=== PATIENT | female | born 1940 | race Caucasian/White ===

== ENCOUNTER 2020-02-12 15:54 | Inpatient (IN) | payer MEDICARE, OTHER ==
[~2020-02-12] VITALS: Ht 162.6 cm; Wt 56.9 kg
[2020-02-12] MEDS ORDERED: SODIUM CHLORIDE 0.9% 250 ML IV ONE (17:00)
[2020-02-12 18:03] LABS: Basophils # (auto) 0.2 10 ^3/uL (0-0.2); Eosinophils # (auto) 0.2 10 ^3/uL (0-0.8); Hemoglobin 9.5 g/dL (12.2-16.2); Lymphocytes # (auto) 2.5 10 ^3/uL (0.4-5.4); Monocytes # (auto) 0.9 10 ^3/uL (0-1.3); Monocytes % (auto) 9.5 % (0.0-12.0)
[2020-02-12 18:05] LABS: Basophils % (auto) 2.4 % (0.0-2.0); Eosinophils % (auto) 2.2 % (0.0-7.0); Hematocrit 29.3 % (36.0-46.0); Mean Corpuscular Hemoglobin 27.6 pg (28.0-32.0); Mean Corpuscular Hgb Conc. 32.4 g/dL (32.0-36.0); Mean Corpuscular Volume 85.2 fL (80.0-100.0); Neutrophils # (auto) 5.7 10 ^3/uL (1.6-8.6); Neutrophils % (auto) 59.9 % (37.0-80.0); Platelet Count (auto) 326 10^3/uL (140-450); Red Blood Cells 3.44 10^6/uL (4.0-5.20); Red Cell Distribution Width 15.4 % (11.8-14.3); White Blood Cell 9.4 10^3/uL (4.4-10.8)
[2020-02-12 18:18] LABS: INR 1.4 (0.9-1.15); Partial Thromboplastin Time 38.8 sec (23.0-31.2)
[2020-02-12 18:22] LABS: Albumin 1.7 g/dL (3.4-5.0); Anion Gap 6 (5-15); BUN/Creatinine Ratio 10.7; Blood Urea Nitrogen 37 mg/dL (7-18); Calcium 8.2 mg/dL (8.5-10.1); Carbon Dioxide 23 mmol/L (21-32); Chloride 109 mmol/L (98-107); GFR African American 17 mL/min; GFR Non-African American 14 mL/min; Glucose 80 mg/dL (74-106); Sodium 138 mmol/L (136-145)
[2020-02-12 18:27] LABS: Alanine Aminotransferase 15 U/L (13-56); Alkaline Phosphatase 89 U/L (45-117); Aspartate Aminotransferase 18 U/L (15-37); Bilirubin, Total 0.3 mg/dL (0.2-1.0); Total Protein 5.6 g/dL (6.4-8.2)
[2020-02-12 19:13] LABS: Urine Bacteria MOD /hpf (None Seen); Urine Blood Negative /uL (Negative); Urine Specific Gravity 1.009 (1.001-1.035); Urine WBC 1 /hpf (0 - 5)
[2020-02-12] MEDS ORDERED: levoFLOXacin 750MG 150 ML IV ONE (19:30)
[2020-02-12] MEDS ORDERED: SODIUM CHLORIDE 0.9% 500 ML IV ONE (20:45)
[2020-02-12] MEDS ORDERED: ONDANSETRON HCL 4 MG/2 ML VIAL IV PRN (20:45)
[2020-02-12] MEDS ORDERED: cloNIDine HCL 0.1 MG TAB PO PRN (20:45)
[2020-02-12] MEDS ORDERED: ACETAMINOPHEN 325 MG TAB PO PRN (20:45)
[2020-02-12] MEDS ORDERED: MORPHINE SULF INJ 2 MG/ML SYRINGE 1ML IV PRN (21:15)
[2020-02-12] MEDS ORDERED: NITROGLYCERIN 0.4 MG SL TAB SL PRN (21:15)
[2020-02-13 06:26] LABS: Basophils # (auto) 0.1 10 ^3/uL (0-0.2); Basophils % (auto) 0.7 % (0.0-2.0); Eosinophils # (auto) 0.1 10 ^3/uL (0-0.8); Eosinophils % (auto) 0.8 % (0.0-7.0); Hematocrit 29.3 % (36.0-46.0); Hemoglobin 9.3 g/dL (12.2-16.2); Lymphocytes # (auto) 1.8 10 ^3/uL (0.4-5.4); Lymphocytes % (auto) 17.2 % (10.0-50.0); Mean Corpuscular Hemoglobin 27.2 pg (28.0-32.0); Mean Corpuscular Hgb Conc. 31.6 g/dL (32.0-36.0); Mean Corpuscular Volume 86.1 fL (80.0-100.0); Monocytes # (auto) 0.9 10 ^3/uL (0-1.3); Monocytes % (auto) 8.5 % (0.0-12.0); Neutrophils # (auto) 7.6 10 ^3/uL (1.6-8.6); Neutrophils % (auto) 72.8 % (37.0-80.0); Platelet Count (auto) 301 10^3/uL (140-450); Red Cell Distribution Width 15.4 % (11.8-14.3); White Blood Cell 10.4 10^3/uL (4.4-10.8)
[2020-02-13 06:51] LABS: Potassium 5.1 mmol/L (3.5-5.1)
[2020-02-13 06:56] LABS: BUN/Creatinine Ratio 11.8; Calcium 7.8 mg/dL (8.5-10.1)
[2020-02-13 09:00] VITALS: BP 152/71
[2020-02-13] MEDS ORDERED: ASPirin 81 mg TAB PO SCH (10:00)
[2020-02-13] MEDS: PANTOPRAZOLE 40 MG TAB PO SCH (10:31)
[2020-02-13] MEDS: amLODIPine BESYLATE 5 MG TAB PO SCH (10:36)
[2020-02-13 12:35] VITALS: BP 146/60
[2020-02-13] MEDS ORDERED: ATOR10TA PO (12:55)
[2020-02-13] MEDS ORDERED: GABA300C PO (12:55)
[2020-02-13] MEDS ORDERED: METO25TA5 PO (12:55)
[2020-02-13] MEDS ORDERED: RIVA20TA PO (12:55)
[2020-02-13] MEDS ORDERED: DIGO0.12 PO (12:55)
[2020-02-13] MEDS ORDERED: RIVA10TA PO (12:55)
[2020-02-13] MEDS ORDERED: LEVE500T32 PO (12:55)
[2020-02-13] MEDS ORDERED: LISI-275 PO (12:55)
[2020-02-13] MEDS ORDERED: ASPI-543 PO (12:55)
[2020-02-13] MEDS ORDERED: ZINC SULFATE 220mg CAP or TAB PO ONE (13:00)
[2020-02-13] MEDS ORDERED: CHOLECALCIFEROL (VITD3) 2,000 UNIT CAP PO ONE (13:00)
[2020-02-13] MEDS ORDERED: ASCORBIC ACID 500 MG TAB PO ONE (13:00)
[2020-02-13] MEDS: BUDESONIDE (INHALATION) 180 MCG IH IN SCH ×3 (13:46→22:17)
[2020-02-13 17:07] VITALS: BP 147/63
[2020-02-13] MEDS: RIVAROXABAN 15 MG TAB PO SCH (18:51)
--- NOTE | 2020-02-13 19:57 | NUR ---
Opening Shift Note Assumed care of patient, awake and alert. No S/S of distress/SOB or pain. Sitter at bedside. Instructed on POC and to call for assist PRN, will continue to monitor for changes Q1hr and PRN.
[2020-02-13 20:00] VITALS: BP 146/60
--- NOTE | 2020-02-13 21:30 | NUR ---
Wounds Wound to bilateral upper extremities. Wound pictures taken.
[2020-02-13] MEDS: TEMAZEPAM 15 MG CAP PO PRN (21:31)
[2020-02-13] MEDS: ATORVASTATIN 20 MG TAB PO SCH (21:32)
[2020-02-13 22:00] VITALS: BP 146/60
[2020-02-13] MEDS ORDERED: BUDESONIDE (INHALATION) 0.5 MG/2 ML NEB NEB SCH (22:00)
--- NOTE | 2020-02-13 22:17 | NUR ---
Respiratory note: PT SEEN FOR SCHEDULED MED NEB TX AT 2217. MEDICATION HELD AT THIS TIME DUE TO POOR PATIENT EFFORT. SITTER AT BEDSIDE AND RN MADE AWARE. NO RESPIRATORY DISTRESS NOTED. HR 81 RR 16 SP02 92% ON ROOM AIR.
--- NOTE | 2020-02-14 03:35 | NUR ---
Room Transferred Patient transferred to room 232
[2020-02-14 04:00] VITALS: BP 146/60
[2020-02-14 05:00] VITALS: BP 137/62
[2020-02-14 06:30] LABS: BUN/Creatinine Ratio 10.9; Calcium 7.8 mg/dL (8.5-10.1); Potassium 4.8 mmol/L (3.5-5.1)
[2020-02-14 06:55] LABS: Basophils # (auto) 0.1 10 ^3/uL (0-0.2); Basophils % (auto) 0.7 % (0.0-2.0); Eosinophils # (auto) 0.2 10 ^3/uL (0-0.8); Eosinophils % (auto) 2.1 % (0.0-7.0); Hematocrit 28.9 % (36.0-46.0); Hemoglobin 9.3 g/dL (12.2-16.2); Lymphocytes # (auto) 2.4 10 ^3/uL (0.4-5.4); Lymphocytes % (auto) 25.1 % (10.0-50.0); Mean Corpuscular Hemoglobin 27.3 pg (28.0-32.0); Mean Corpuscular Hgb Conc. 32.3 g/dL (32.0-36.0); Mean Corpuscular Volume 84.6 fL (80.0-100.0); Monocytes # (auto) 0.9 10 ^3/uL (0-1.3); Monocytes % (auto) 9.7 % (0.0-12.0); Neutrophils # (auto) 6.1 10 ^3/uL (1.6-8.6); Neutrophils % (auto) 62.4 % (37.0-80.0); Platelet Count (auto) 308 10^3/uL (140-450); Red Blood Cells 3.42 10^6/uL (4.0-5.20); Red Cell Distribution Width 15.6 % (11.8-14.3); White Blood Cell 9.7 10^3/uL (4.4-10.8)
--- NOTE | 2020-02-14 07:00 | NUR ---
Critical Lab Critical Lab of Digoxin 2.9 Page hospitalist, waiting to call back.
[2020-02-14] MEDS: BUDESONIDE (INHALATION) 0.5 MG/2 ML NEB NEB SCH ×3 (07:44→23:38)
--- NOTE | 2020-02-14 07:48 | NUR ---
PT REFUSING PULMICORT MEDNEB TX. PT AGITATED AND STATING THAT SHE IS NOT SICK. PROVIDED EDUCATION ON BENEFITS OF MEDICATION, PT STILL REFUSING. HR 72, RR 18, SPO2 97% ON ROOM AIR. BREATH SOUNDS CLEAR/DIM. NO S/S OF RESPIRATORY DISTRESS NOTED.
[2020-02-14 08:52] VITALS: BP 119/66
[2020-02-14] MEDS: ASCORBIC ACID 500 MG TAB PO SCH (10:00)
[2020-02-14] MEDS: PANTOPRAZOLE 40 MG TAB PO SCH (10:00)
[2020-02-14] MEDS: CHOLECALCIFEROL (VITD3) 2,000 UNIT CAP PO SCH (10:00)
[2020-02-14] MEDS: ZINC SULFATE 220mg CAP or TAB PO SCH (10:00)
[2020-02-14] MEDS: amLODIPine BESYLATE 5 MG TAB PO SCH (10:00)
--- NOTE | 2020-02-14 10:00 | NUR ---
PT REFUSING MEDICATIONS. PATIENT STATES SHE WILL NOT TAKE ANY PILLS. EDUCATED PATIENT ON REASON AND NEED FOR MEDICATIONS. PATIENT CONTINUES TO REFUSE.
--- NOTE | 2020-02-14 11:19 | NUR ---
Nutrition Consult/assessment Notes: please see attached link for complete assessment [employer] needs BW 57 [id number] kcals (25-30 kcal/kgBW), Est Protein needs: 45-57 gms/day (0.8-1.0 gm/kgBW r/t elev RFT CKD hypoalb). Will continue to monitor and reassess prn. Addendum: 02/14/20 at [address] Amended: Links added.
--- NOTE | 2020-02-14 11:32 | NUR ---
PT CONTINUES TO REFUSE MORNING MEDICATIONS
[2020-02-14 12:14] VITALS: BP 134/62
--- NOTE | 2020-02-14 15:00 | NUR ---
WOUND CARE NOTE: IN TO SEE PATIENT AT THIS TIME PER WOUND CARE CONSULT REQUEST. PATIENT ADMITTED TO [facility] WITH DIAGNOSIS OF PNA. SHE IS COVID POSITIVE, RESTING IN COVID UNIT, ROOM 232A. PATIENT NOTED UPON ADMIT TO HAVE WOUNDS/SKIN INTEGRITY ISSUES. ALL WOUNDS WERE PHOTOGRAPHED AT THAT TIME BY BEDSIDE NURSE FOR REFERENCE. PATIENT IS NTOED TO HAVE A KATIE SCORE OF 12. SHE IS CONFUSED/ALOC, MAX ASSIST FOR HER ADL'S INCLUDING TURNING/REPOSITIONING. PATIENT NOTED TO HAVE MULTIPLE SKIN TEARS TO BILATERAL ARMS. APPLIED THERAHONEY, OPTIFOAM GENTLE DRESSINGS TO ALL WOUNDS. PATIENT ALSO NOTED TO HAVE MASD AND INTERTRIGO NOTED TO INTRAGLUTEAL, PERINEAL, BILATERAL BUTTOCKS, LEFT GROIN SKIN FOLD AREAS. OPTIFOAM GENTLE SACRAL DRESSING IN PLACE TO UPPER MEDIAL SACRUM PREVENTATIVE. ALL WOUNDS PHOTOGRAPHED AGAIN AT THIS TIME PER PROTOCOL. RECOMMEND: FREQUENT TURN SCHEDULE Q 2 HOURS, PRN CONDITION PERMITS, WITH PRESSURE REDISTRIBUTION USING PILLOWS/WEDGES; SPECIALTY AIR MATTRESS; BID APPLICATION WITH NYSTATIN POWDER TO INTERTRIGINOUS RASH AREAS OF SKIN FOLDS, INTRAGLUTEAL AREAS; Q 3 DAY/PRN DRESSING CHANGES TO SKIN TEARS ON BILATERAL ARMS; DIETARY CONSULT FOR WOUNDS, LOW KATIE SCORE OF 12; SKIN/WOUND CARE PLAN, CONTINUED MONITORING BY WOUND CARE TEAM. Addendum: 02/14/20 at 1808 by Shelli Mcfarland RN Amended: Links added.
[2020-02-14 17:00] VITALS: BP 132/64
[2020-02-14] MEDS: RIVAROXABAN 15 MG TAB PO SCH (18:36)
[2020-02-14] MEDS ORDERED: SODIUM CHLORIDE 0.9% 1,000 ML IV ONE ×2 (19:15)
[2020-02-14] MEDS: ATORVASTATIN 20 MG TAB PO SCH (22:00)
[2020-02-15] MEDS: NYSTATIN TOPICAL POWDER 15GM TOP SCH ×3 (00:21→22:00)
[2020-02-15 06:00] VITALS: BP 143/80
[2020-02-15 07:18] LABS: Calcium 8.1 mg/dL (8.5-10.1); Potassium 4.6 mmol/L (3.5-5.1)
[2020-02-15 07:21] LABS: Albumin 1.6 g/dL (3.4-5.0); BUN/Creatinine Ratio 9.1
[2020-02-15 07:24] LABS: Bilirubin, Total 0.2 mg/dL (0.2-1.0); Total Protein 5.4 g/dL (6.4-8.2)
--- NOTE | 2020-02-15 07:32 | NUR ---
closing note pt resting in semi fowlers with HOB at thirty degrees. no s/s of respiratory distress. endorsed care to day shift RN Amrita.
[2020-02-15] MEDS: BUDESONIDE (INHALATION) 0.5 MG/2 ML NEB NEB SCH ×2 (08:49→21:41)
[2020-02-15 09:00] VITALS: BP 149/72
[2020-02-15] MEDS: ZINC SULFATE 220mg CAP or TAB PO SCH (12:41)
[2020-02-15] MEDS: amLODIPine BESYLATE 5 MG TAB PO SCH (12:42)
[2020-02-15] MEDS: PANTOPRAZOLE 40 MG TAB PO SCH (12:42)
[2020-02-15] MEDS: ASCORBIC ACID 500 MG TAB PO SCH (12:43)
[2020-02-15] MEDS: CHOLECALCIFEROL (VITD3) 2,000 UNIT CAP PO SCH (12:43)
[2020-02-15 13:00] VITALS: BP 125/67
--- NOTE | 2020-02-15 16:20 | NUR ---
IV insertion IV access obtained, via clean sterile technique by inserting 22 gauge catheter at after attempt(s). IV secured properly. No trauma to site. Patient tolerated well. NOTE:
[2020-02-15 16:50] VITALS: BP 128/64
--- NOTE | 2020-02-15 17:32 | NUR ---
Sheppard catheter dc'd Order to discontinue sheppard catheter. Sheppard dc'd with clean technique following deflation of balloon. Patient tolerated well with no complaints of pain. Continue care.
[2020-02-15] MEDS: RIVAROXABAN 15 MG TAB PO SCH (18:29)
[2020-02-15 22:00] VITALS: BP 137/76
[2020-02-15] MEDS: ATORVASTATIN 20 MG TAB PO SCH (22:00)
[2020-02-15] MEDS: TEMAZEPAM 15 MG CAP PO PRN (23:21)
[2020-02-16 04:51] VITALS: BP 141/87
[2020-02-16] MEDS: BUDESONIDE (INHALATION) 0.5 MG/2 ML NEB NEB SCH (07:10)
--- NOTE | 2020-02-16 07:53 | NUR ---
closing note pt resting in right lateral position. respirations even and nonlabored on room air. no s/s of pain or distress. Endorsed care to day shift RN Christiano.
[2020-02-16 09:00] VITALS: BP 155/73
--- NOTE | 2020-02-16 09:05 | NUR ---
Assessment Patient is a 80-year-old female. Assessment was completed with patient caregiver Jacquelyn . Per Jacquelyn prior to admission patient functioned with assistance. Per Jacquelyn patient has a walker for home use. Advised Jacquelyn there is a social service consult for SNF placement. Jacquelyn is in agreements for patient to be placed at a [facility] nursing facility and does not have a preference. Informed Jacquelyn due to patient being positive COVID SNF placement will be out of area and order will be faxed to [facility]. Jacquelyn verbalize understanding d/c plan. Faxed clinical information to [facility]. Per Kim with [facility] patient has been accepted to room 404 bed A accepting MD, Dr. Preston. Transportation will be arranged upon discharge day. LORENA Alvarado. Addendum: 02/16/20 at 0906 by RAPHAEL MCMILLAN Amended: Links added.
[2020-02-16] MEDS: CHOLECALCIFEROL (VITD3) 2,000 UNIT CAP PO SCH (10:00)
[2020-02-16] MEDS: ASCORBIC ACID 500 MG TAB PO SCH (10:00)
[2020-02-16] MEDS: ZINC SULFATE 220mg CAP or TAB PO SCH (10:00)
[2020-02-16] MEDS: amLODIPine BESYLATE 5 MG TAB PO SCH (10:12)
[2020-02-16] MEDS: PANTOPRAZOLE 40 MG TAB PO SCH (10:12)
[2020-02-16] MEDS: NYSTATIN TOPICAL POWDER 15GM TOP SCH (10:13)
[2020-02-16 13:00] VITALS: BP 137/67
--- NOTE | 2020-02-16 15:31 | NUR ---
SPOKE TO [facility] CAREGIVER, INFORMED OF PATIENTS TRANSFER. CEZAR IS AWARE PATIENT WILL BE GOING TO [facility] TODAY. VERBALIZED UNDERSTANDING.
--- NOTE | 2020-02-16 15:42 | NUR ---
D/C Planning [place] transport will be transporting patient via gurney at 4pm. Informed LORENA Alvarado.
--- NOTE | 2020-02-16 16:10 | NUR ---
D/C WOUND PHOTOS TAKEN.
--- NOTE | 2020-02-16 16:55 | NUR ---
REPORT GIVEN TO LORENA MORRISON. ALL QUESTIONS ANSWERED.
--- NOTE | 2020-02-16 16:56 | NUR ---
Discharge instructions given as ordered. Encourage to follow up with PMD as instructed. PATIENT LEFT WITH ALL BELONGINGS INCLUDING DENTURES. All questions and concerns addressed. Patient verbalized understanding. IV removed with catheter intact, pressure dressing applied Telemetry unit returned to ICU. Patient taken to [facility] WITH [facility]. accompanied by staff and family member. No distress noted at time of departure.
[2020-02-16 16:59] VITALS: BP 129/100
--- NOTE | 2020-02-16 18:32 | NUR ---
SPOKE WITH RN RESOURCE NURSE YEIMY FROM [facility], STATED PATIENT WAS REROUTED TO [facility] AND SHE HAS ALREADY SPOKEN TO [facility] RAPHAEL. REPORT GIVEN TO LORENA OH. ANSWERED QUESTIONS TO SATISFACTION.
== END 2020-02-16 16:20 | DRG 177 ==
LOC: EDBD 15:54 → ER 15:54 → OVERFLOW 15:55 → TELE-EAST 02-13 08:48
PROVIDERS: ADMIT Nurse Practitioner; ATTEND Internal Medicine
DX: U07.1 COVID-19 (principal); J12.89 Other viral pneumonia; E43 Unspecified severe protein-calorie malnutrition; G92 Toxic encephalopathy; N18.4 Chronic kidney disease, stage 4 (severe); N17.9 Acute kidney failure, unspecified; D68.69 Other thrombophilia; I69.354 Hemiplegia and hemiparesis following cerebral infarction affecting left non-dominant side; N39.0 Urinary tract infection, site not specified; R62.7 Adult failure to thrive; I48.91 Unspecified atrial fibrillation; E11.40 Type 2 diabetes mellitus with diabetic neuropathy, unspecified; I50.9 Heart failure, unspecified; M17.11 Unilateral primary osteoarthritis, right knee; Z95.0 Presence of cardiac pacemaker; Z79.899 Other long term (current) drug therapy; H54.7 Unspecified visual loss; Z68.21 Body mass index [BMI] 21.0-21.9, adult
CPT/HCPCS: 36415; 71045; 73560; 76775; 80048; 80053; 80162; 81001; 82607; 82962; 83036; 83880; 84443; 84484; 85025; 85610; 85730; 87040; 87426; 93005; 94640; 94760; 97110; 97163; 97530; G0378; J1956